=== PATIENT | male | born 1940 | race Caucasian/White ===

== ENCOUNTER 2017-06-02 18:59 | Inpatient (IN) ==
[2017-06-02] MEDS ORDERED: DEXTROSE 50% 25 GM/50 ML VIAL IV PRN (20:44)
[2017-06-02] MEDS ORDERED: ONDANSETRON 4 MG/2 ML VIAL IV PRN (20:44)
[2017-06-02] MEDS ORDERED: ACETAMINOPHEN 325 MG TABLET PO PRN (20:44)
[2017-06-02] MEDS ORDERED: GLUCAGON 1 MG VIAL IM PRN (20:44)
[2017-06-02] MEDS ORDERED: ALBUTEROL/IPRATROPIUM 3 ML NEB RESP TX PRN (20:50)
[2017-06-02] MEDS ORDERED: AMITRIPTYLINE 10 MG TABLET PO PRN (21:46)
[2017-06-02] MEDS: CILOSTAZOL 50 MG TABLET PO SCH (22:03)
[2017-06-02] MEDS: DOCUSATE/SENNA 50-8.6 MG TABLET PO SCH (22:03)
[2017-06-02] MEDS: ROSUVASTATIN 10 MG TABLET PO SCH (22:03)
[2017-06-02] MEDS: INSULIN REGULAR 100 UNIT/ML SUBCUT SCH (22:31)
[2017-06-02] MEDS: MELATONIN 3 MG TABLET PO SCH (22:33)
[2017-06-02] MEDS: AZITHROMYCIN INJ 500 MG in SODIUM CHLORIDE 0.9% 250 ML IV SCH (22:42)
[2017-06-02] MEDS: POTASSIUM CHLORIDE 20 MEQ TABLET PO PRN (22:43)
[2017-06-02] MEDS: ENOXAPARIN 40 MG/0.4 ML SYRINGE SUBCUT SCH (22:48)
[2017-06-03] MEDS: POTASSIUM CHLORIDE 20 MEQ TABLET PO PRN ×2 (02:33→05:42)
[2017-06-03 07:59] LABS: Basophils # 0.1 10*3/uL (0.0-0.2); Basophils % 0.3 % (0.0-0.8); Eosinophils # 0.4 10*3/uL (0.0-0.87); Eosinophils % 2.9 % (0.00-10.9); Hematocrit 32.7 VOL% (42.0-52.0); Hemoglobin 11.4 GM/DL (14.0-18.0); Immature Granulocytes % 0.3 %; Immature Granulocytes Absolute 0.05 #; Lymphocytes # 1.7 10*3/uL (1.4-4.0); Lymphocytes % 11.5 % (21.2-54.2); Mean Corpuscular HGB Conc 34.9 GM/DL (32-36); Mean Corpuscular Hemoglobin 29 PG (27-34); Mean Corpuscular Volume 83.2 FL (87-102); Monocytes # 1.3 10*3/uL (0.11-0.8); Monocytes % 9.2 % (1.7-12.7); Neutrophils # 10.9 10*3/uL (1.4-7.4); Neutrophils % 75.8 % (38.7-73.9); Platelet Count 206 T/CUMM (130-400); Red Blood Count 3.93 MC/CUMM (3.8-5.5); Red Cell Distribution Width 13.2 % (9.3-17.3); White Blood Count 14.4 T/CUMM (4-12)
[2017-06-03 08:39] LABS: Albumin 2.8 G/DL (3.4-5.0); Bilirubin,Total 0.7 MG/DL (0.2-1.0); Calcium 8.4 MG/DL (8.5-10.1); Osmolality,Calculated 277.7 MOS/KG (273-304); Potassium 5.4 MMOL/L (3.5-5.1)
[2017-06-03] MEDS: INSULIN REGULAR 100 UNIT/ML SUBCUT SCH ×4 (08:54→22:18)
[2017-06-03] MEDS: GLIMEPIRIDE 4 MG TABLET PO SCH (08:54)
[2017-06-03] MEDS: CILOSTAZOL 50 MG TABLET PO SCH ×2 (08:55→23:00)
[2017-06-03] MEDS: PANTOPRAZOLE 40 MG TABLET PO SCH (08:55)
[2017-06-03] MEDS: CLOPIDOGREL 75 MG TABLET PO SCH (08:55)
[2017-06-03] MEDS: cefTRIAXone 1,000 MG in SYRINGE 1 EACH IV SCH (08:56)
[2017-06-03] MEDS: DOCUSATE/SENNA 50-8.6 MG TABLET PO SCH ×2 (08:58→22:59)
[2017-06-03] MEDS: ASCORBIC ACID 500 MG TABLET PO SCH (08:58)
[2017-06-03] MEDS: ZINC GLUCONATE 50 MG TABLET PO SCH (08:58)
[2017-06-03] MEDS ORDERED: ASPIRIN EC 81 MG TABLET PO SCH (21:00)
[2017-06-03] MEDS ORDERED: ATENOLOL 50 MG TABLET PO SCH (21:00)
[2017-06-03] MEDS: MELATONIN 3 MG TABLET PO SCH (23:00)
[2017-06-03] MEDS: ROSUVASTATIN 10 MG TABLET PO SCH (23:01)
[2017-06-03] MEDS: ENOXAPARIN 40 MG/0.4 ML SYRINGE SUBCUT SCH (23:03)
[2017-06-03] MEDS: AZITHROMYCIN INJ 500 MG in SODIUM CHLORIDE 0.9% 250 ML IV SCH (23:04)
[2017-06-04] MEDS: GLIMEPIRIDE 4 MG TABLET PO SCH (08:49)
[2017-06-04] MEDS: ZINC GLUCONATE 50 MG TABLET PO SCH (08:50)
[2017-06-04] MEDS: CILOSTAZOL 50 MG TABLET PO SCH (08:50)
[2017-06-04] MEDS: ASCORBIC ACID 500 MG TABLET PO SCH (08:50)
[2017-06-04] MEDS: PANTOPRAZOLE 40 MG TABLET PO SCH (08:50)
[2017-06-04] MEDS: CLOPIDOGREL 75 MG TABLET PO SCH (08:51)
[2017-06-04] MEDS: cefTRIAXone 1,000 MG in SYRINGE 1 EACH IV SCH (08:51)
[2017-06-04] MEDS: DOCUSATE/SENNA 50-8.6 MG TABLET PO SCH (09:00)
[2017-06-04] MEDS: INSULIN REGULAR 100 UNIT/ML SUBCUT SCH ×2 (09:11→12:17)
[2017-06-04] MEDS ORDERED: LOPERAMIDE 2 MG CAPSULE PO PRN (09:54)
[2017-06-04 11:37] VITALS: BP 132/67
== END 2017-06-04 15:35 | disposition home or self-care (01) | DRG 871 ==
LOC: EDUNIT# → EDBD → N.ED 18:59 → N.EDINP 20:34 → SUATTDRO 20:34 → N.EDINP 21:33 → N.2E 21:44
PROVIDERS: ADMIT Internal Medicine; ATTEND Internal Medicine Nephrology

== ENCOUNTER 2018-08-22 08:24 | Inpatient (IN) ==
[2018-08-22 10:29] LABS: Basophils % 0.5 % (0.0-0.8); Eosinophils # 0.2 10*3/uL (0.0-0.87); Eosinophils % 2.3 % (0.00-10.9); Hemoglobin 10.9 GM/DL (14.0-18.0); Immature Granulocytes % 0.3 %; Immature Granulocytes Absolute 0.03 #; Lymphocytes # 1.8 10*3/uL (1.4-4.0); Lymphocytes % 20.8 % (21.2-54.2); Mean Corpuscular HGB Conc 32.1 GM/DL (32-36); Mean Corpuscular Hemoglobin 29 PG (27-34); Mean Platelet Volume 9.9 FL (9.6-12.0); Monocytes # 0.7 10*3/uL (0.11-0.8); Monocytes % 8.2 % (1.7-12.7); Neutrophils % 67.9 % (38.7-73.9); Platelet Count 210 T/CUMM (130-400); Red Blood Count 3.82 MC/CUMM (3.8-5.5); White Blood Count 8.8 T/CUMM (4-12)
[2018-08-22] MEDS ORDERED: DEXTROSE 50% 25 GM/50 ML SYRINGE IV PRN (10:49)
[2018-08-22] MEDS ORDERED: GLUCAGON 1 MG VIAL IM PRN (10:50)
[2018-08-22] MEDS ORDERED: AMITRIPTYLINE 10 MG TABLET PO PRN ×2 (10:50→10:52)
[2018-08-22] MEDS ORDERED: ACETAMINOPHEN 325 MG TABLET PO PRN (10:50)
[2018-08-22 11:00] LABS: Alanine Aminotransferase 14 U/L (16-61); Alkaline Phosphatase 44 U/L (45-117); Aspartate Amino Transferase 11 U/L (0-37); Bilirubin,Total < 0.39 MG/DL (0.2-1.0); Blood Urea Nitrogen 18 MG/DL (7-18); Calcium 8.5 MG/DL (8.5-10.1); Glucose 216 MG/DL (74-106); Osmolality,Calculated 289.3 MOS/KG (273-304); Potassium 5.6 MMOL/L (3.5-5.1); Sodium 141 MMOL/L (136-145); Total Protein 6.5 G/DL (6.4-8.3)
[2018-08-22] MEDS ORDERED: SODIUM CHLORIDE 0.9% 1,000 ML IV SCH (11:00)
[2018-08-22] MEDS: CHLORHEXIDINE 4% SOLN 118 ML BOTTLE TOP SCH ×2 (15:17→21:41)
[2018-08-22 16:02] LABS: ABG Base Excess 2.9 MMOL/L (-2.5-2.5); ABG Oxygen Saturation 97.2 % (95-100); ABG PCO2 42.4 MM HG (35-48); ABG PH 7.422 (7.35-7.45); ABG PO2 85.8 MM HG (80-95); ABG TCO2 24.3 MMOL/L (23-27)
[2018-08-22] MEDS ORDERED: ATENOLOL 50 MG TABLET PO SCH (21:00)
[2018-08-22] MEDS ORDERED: MELATONIN 3 MG TABLET PO SCH (21:00)
[2018-08-22] MEDS ORDERED: PANTOPRAZOLE 40 MG TABLET PO SCH (21:00)
[2018-08-22] MEDS: MORPHINE ER 30 MG TABLET PO SCH (22:06)
[2018-08-22] MEDS: CHLORHEXIDINE 0.12% ORAL RINSE 60 ML BOTTLE SWISH/SPIT SCH (22:07)
[2018-08-22] MEDS: DOCUSATE/SENNA 50-8.6 MG TABLET PO SCH (22:07)
[2018-08-23] MEDS ORDERED: CEFUROXIME INJ 1,500 MG in SYRINGE 1 EACH IV ONE (05:00)
[2018-08-23] MEDS: CHLORHEXIDINE 4% SOLN 118 ML BOTTLE TOP SCH ×2 (05:23→11:09)
[2018-08-23] MEDS ORDERED: MIDAZOLAM 10 MG/2 ML VIAL ONE ×2 (05:39→05:40)
[2018-08-23] MEDS ORDERED: SUFentanil 250 MCG/5 ML AMP ONE (05:39)
[2018-08-23] MEDS ORDERED: VECURONIUM 10 MG VIAL IV ONE (05:40)
[2018-08-23] MEDS ORDERED: MINERAL OIL/PETROLATUM OPH OINT 3.5 GM TUBE ONE (05:40)
[2018-08-23] MEDS ORDERED: AMINOCAPROIC ACID 5,000 MG/20 ML VIAL IV ONE (05:41)
[2018-08-23] MEDS ORDERED: CALCIUM CHLORIDE 1,000 MG/10 ML VIAL IV ONE (05:41)
[2018-08-23] MEDS ORDERED: VANCOMYCIN 1,000 MG VIAL ONE (05:42)
[2018-08-23] MEDS ORDERED: LORazepam 1 MG TABLET PO ONE (06:00)
[2018-08-23] MEDS ORDERED: PHENYLEPHRINE DRIP 40 MG/250 ML PREMIX IV ONE (07:08)
[2018-08-23] MEDS ORDERED: CALCIUM CHLORIDE 1,000 MG/10 ML SYRINGE IV ONE (07:08)
[2018-08-23] MEDS ORDERED: POTASSIUM CHLORIDE RIDER 100 ML IV ONE (07:08)
[2018-08-23] MEDS ORDERED: NITROPRUSSIDE 50 MG/2 ML VIAL ONE (07:08)
[2018-08-23] MEDS ORDERED: CEFUROXIME 1,500 MG VIAL ONE (07:34)
[2018-08-23 07:38] LABS: ABG Base Excess 1.5 MMOL/L (-2.5-2.5); ABG HCO3 25.8 MMOL/L (20-26); ABG PCO2 39.5 MM HG (35-48); ABG PH 7.425 (7.35-7.45); ABG TCO2 23.5 MMOL/L (23-27); Glucose Heart Surgery 113 MG/DL (74-106); Hematocrit Heart Surgery 31.3 PERCENT (42-52); Hemoglobin Heart Surgery 10.1 G/DL (14.0-18.0); Ionized Calcium Arterial 1.31 MMOL/L (1.21-1.46); PCO2 Patient Temp Arterial 39.5 MMHG; PH Patient Temp Arterial 7.425; Patient Temperature 37 CELCIUS; Potassium Heart/CVR 3.7 MMOL/L (3.5-5.1); Sodium Heart/CVR 139 MMOL/L (135-145)
[2018-08-23 08:21] LABS: Apearance,Urine Slightly Hazy (Clear); Bilirubin,Urine Negative (Negative); Blood, Urine Negative (Negative); Glucose,Urine (UA) Negative (Negative); Ketones,Urine Negative (Negative); Nitrite,Urine Positive (Negative); Protein,Urine Negative; RBC,Urine 4 /HPF (0-4); Squamous Epithelial Cell,Urine Occasional /HPF (0-10); Urine Color Yellow (Yellow); Urine Specific Gravity 1.017 (1.001-1.035); Urine Urobilinogen < 2.0 EU/DL (0.2-1.0); WBC,Urine 36 /HPF (0-6)
[2018-08-23 08:28] LABS: PH Patient Temp Venous 7.497; PO2 Patient Temp Venous 35.7 MM HG; Potassium Heart/CVR 4.5 MMOL/L (3.5-5.1); VBG Base Excess 2.5 MEQ/L (0-4); VBG HCO3 26.5 MEQ/L (24-28); VBG Oxygen Saturation 81.5 %; VBG PCO2 36.4 MMHG (41-51); VBG PH 7.467; VBG PO2 41.1 MMHG (17-40)
[2018-08-23 08:31] LABS: Hemoglobin Heart Surgery 6.4 G/DL (14.0-18.0)
[2018-08-23 08:59] LABS: Hematocrit Heart Surgery 23.3 PERCENT (42-52); Hemoglobin Heart Surgery 7.5 G/DL (14.0-18.0); PCO2 Patient Temp Venous 29.8 MM HG; PH Patient Temp Venous 7.535; PO2 Patient Temp Venous 40.3 MM HG; Potassium Heart/CVR 4.1 MMOL/L (3.5-5.1); VBG Base Excess 2.9 MEQ/L (0-4); VBG HCO3 26.9 MEQ/L (24-28); VBG Oxygen Saturation 89.7 %; VBG PCO2 34.5 MMHG (41-51); VBG PH 7.489; VBG PO2 49.5 MMHG (17-40)
[2018-08-23] MEDS ORDERED: ASCORBIC ACID 500 MG TABLET PO SCH (09:00)
[2018-08-23] MEDS ORDERED: ZINC GLUCONATE 50 MG TABLET PO SCH (09:00)
[2018-08-23] MEDS ORDERED: LEVOFLOXACIN 750 MG TABLET PO SCH (09:00)
[2018-08-23] MEDS ORDERED: GLIMEPIRIDE 4 MG TABLET PO SCH (09:00)
[2018-08-23] MEDS ORDERED: MULTIVITAMIN (CENTRUM) TABLET PO SCH (09:00)
[2018-08-23 09:42] LABS: ABG Base Excess 1.4 MMOL/L (-2.5-2.5); ABG HCO3 25.7 MMOL/L (20-26); ABG PCO2 32.1 MM HG (35-48); ABG PH 7.491 (7.35-7.45); ABG TCO2 22.9 MMOL/L (23-27); Glucose Heart Surgery 202 MG/DL (74-106); Hematocrit Heart Surgery 23.9 PERCENT (42-52); Hemoglobin Heart Surgery 7.7 G/DL (14.0-18.0); Ionized Calcium Arterial 1.27 MMOL/L (1.21-1.46); PCO2 Patient Temp Arterial 32.1 MMHG; PH Patient Temp Arterial 7.491; Patient Temperature 37 CELCIUS; Potassium Heart/CVR 4.3 MMOL/L (3.5-5.1); Sodium Heart/CVR 132 MMOL/L (135-145)
[2018-08-23] MEDS ORDERED: HEPARIN 10,000 UNIT/10 ML VIAL ONE (09:46)
[2018-08-23] MEDS ORDERED: MANNITOL 12.5 GM/50 ML VIAL IV ONE (09:46)
[2018-08-23] MEDS ORDERED: PROTAMINE SULFATE 250 MG/25 ML VIAL IV ONE (09:46)
[2018-08-23] MEDS ORDERED: ALBUMIN 25% 25 GM/100 ML VIAL IV ONE (09:46)
[2018-08-23] MEDS ORDERED: DEXTROSE 5% KCL 20 MEQ 20 MEQ/1,000 ML BAG IV ONE (09:46)
[2018-08-23] MEDS ORDERED: FUROSEMIDE 20 MG/2 ML VIAL ONE (09:46)
[2018-08-23] MEDS ORDERED: methylPREDNISolone SOD SUC 1,000 MG/8 ML VIAL ONE (09:46)
[2018-08-23] MEDS ORDERED: MAGNESIUM SULFATE 10 GM/20 ML VIAL IV ONE (09:46)
[2018-08-23] MEDS ORDERED: SODIUM BICARBONATE 50 MEQ/50 ML SYRINGE IV ONE (09:46)
[2018-08-23] MEDS ORDERED: POTASSIUM CHLORIDE 20 MEQ/10 ML VIAL ONE (09:47)
[2018-08-23] MEDS ORDERED: PROTAMINE SULFATE 50 MG/5 ML VIAL IV ONE ×3 (09:47→10:40)
[2018-08-23] MEDS: SODIUM CHLORIDE 0.45% 1,000 ML IV SCH (10:21)
[2018-08-23] MEDS ORDERED: HEPARIN/NACL 0.9% 2 UNITS/ML 500 ML IV ONE (10:27)
[2018-08-23] MEDS ORDERED: SEVOFLURANE 1 UNIT/15 MINUTE INH ONE (10:27)
[2018-08-23] MEDS ORDERED: SUFentanil 50 MCG/ML AMP ONE (10:27)
[2018-08-23] MEDS ORDERED: PHENYLEPHRINE DRIP 20 MG/250 ML PREMIX IV ONE (10:27)
[2018-08-23] MEDS ORDERED: GLYCOPYRROLATE 0.4 MG/2 ML VIAL ONE (10:28)
[2018-08-23] MEDS ORDERED: ETOMIDATE 40 MG/20 ML VIAL IV ONE (10:28)
[2018-08-23] MEDS ORDERED: NITROGLYCERIN DRIP 50 MG/250 ML BOTTLE IV ONE (10:28)
[2018-08-23] MEDS ORDERED: SODIUM CHLORIDE 0.9% 250 ML IV ONE (10:28)
[2018-08-23] MEDS ORDERED: SODIUM CHLORIDE 0.9% 2,000 ML IV ONE (10:28)
[2018-08-23] MEDS ORDERED: LACTATED RINGERS 1,000 ML IV ONE (10:28)
[2018-08-23] MEDS ORDERED: SODIUM CHLORIDE 0.9% 100 ML IV ONE (10:28)
[2018-08-23] MEDS: LACTATED RINGERS 1,000 ML IV PRN (10:33)
[2018-08-23] MEDS ORDERED: ALBUMIN 5% 12.5 GM/250 ML VIAL IV ONE (10:44)
[2018-08-23] MEDS ORDERED: SODIUM CHLORIDE 0.45% 1,000 ML IV SCH (10:44)
[2018-08-23] MEDS ORDERED: MIDAZOLAM 10 MG/2 ML VIAL IV PRN (10:44)
[2018-08-23] MEDS ORDERED: POTASSIUM CHLORIDE RIDER 10 MEQ in PREMIX 1 EACH IV PRN (10:44)
[2018-08-23] MEDS ORDERED: INSULIN REGULAR 100 UNIT/ML IV ONE (10:44)
[2018-08-23] MEDS ORDERED: INSULIN REGULAR DRIP 100 ML IV SCH (10:44)
[2018-08-23] MEDS ORDERED: ACETAMINOPHEN 650 MG SUPP RECTAL PRN (10:44)
[2018-08-23] MEDS ORDERED: VECURONIUM 10 MG VIAL IV PRN ×2 (10:44)
[2018-08-23] MEDS ORDERED: MORPHINE 10 MG/1 ML VIAL IV PRN (10:44)
[2018-08-23] MEDS ORDERED: MAGNESIUM SULF RIDER 4 GM in PREMIX 1 EACH IV PRN (10:44)
[2018-08-23] MEDS ORDERED: CALCIUM CHLORIDE 1,000 MG/10 ML SYRINGE IV PRN (10:44)
[2018-08-23] MEDS ORDERED: DEXTROSE 50% 25 GM/50 ML SYRINGE IV PRN ×2 (10:44)
[2018-08-23] MEDS ORDERED: MORPHINE 4 MG/1 ML VIAL IV PRN (10:44)
[2018-08-23] MEDS ORDERED: MAGNESIUM SULF RIDER 2 GM in PREMIX 1 EACH IV PRN (10:44)
[2018-08-23] MEDS ORDERED: ONDANSETRON 4 MG/2 ML VIAL IV PRN (10:44)
[2018-08-23] MEDS ORDERED: MIDAZOLAM 2 MG/2 ML VIAL IV PRN (10:44)
[2018-08-23] MEDS ORDERED: LACTATED RINGERS 250 ML IV PRN (10:44)
[2018-08-23] MEDS ORDERED: PHENYLEPHRINE DRIP 40 MG/250 ML PREMIX IV PRN (10:44)
[2018-08-23] MEDS ORDERED: NITROPRUSSIDE 100 MG in DEXTROSE 5% 250 ML IV PRN (10:44)
[2018-08-23 11:01] LABS: Basophils % 0.1 % (0.0-0.8); Eosinophils # 0.1 10*3/uL (0.0-0.87); Eosinophils % 0.8 % (0.00-10.9); Hematocrit 24.7 VOL% (42.0-52.0); Hemoglobin 8.4 GM/DL (14.0-18.0); Immature Granulocytes % 0.7 %; Immature Granulocytes Absolute 0.06 #; Lymphocytes # 2.1 10*3/uL (1.4-4.0); Lymphocytes % 22.8 % (21.2-54.2); Mean Corpuscular Hemoglobin 30 PG (27-34); Mean Corpuscular Volume 87.3 FL (87-102); Mean Platelet Volume 9.8 FL (9.6-12.0); Monocytes # 0.7 10*3/uL (0.11-0.8); Monocytes % 7.3 % (1.7-12.7); Neutrophils # 6.2 10*3/uL (1.4-7.4); Neutrophils % 68.3 % (38.7-73.9); Platelet Count 157 T/CUMM (130-400); Red Blood Count 2.83 MC/CUMM (3.8-5.5); Red Cell Distribution Width 12.9 % (9.3-17.3); White Blood Count 9.1 T/CUMM (4-12)
[2018-08-23 11:02] LABS: ABG Base Excess 1.3 MMOL/L (-2.5-2.5); ABG HCO3 25.6 MMOL/L (20-26); ABG Oxygen Saturation 99.9 % (95-100); ABG PCO2 30.1 MM HG (35-48); ABG PH 7.507 (7.35-7.45); ABG TCO2 21.8 MMOL/L (23-27); Glucose Heart Surgery 193 MG/DL (74-106); Hematocrit Heart Surgery 28.2 PERCENT (42-52); Hemoglobin Heart Surgery 9.1 G/DL (14.0-18.0); Potassium Heart/CVR 4.2 MMOL/L (3.5-5.1)
[2018-08-23 11:10] LABS: INR 1.4; PT Patient Result 15.4 SECS; Partial Thromboplastin Time 26.5 SECS (0-40)
[2018-08-23 11:21] LABS: Bilirubin,Total 0.8 MG/DL (0.2-1.0); Calcium 8.5 MG/DL (8.5-10.1); Osmolality,Calculated 278.8 MOS/KG (273-304); Potassium 4.3 MMOL/L (3.5-5.1); Total Protein 5.2 G/DL (6.4-8.3)
[2018-08-23] MEDS: KETOROLAC 30 MG/1 ML VIAL IV SCH ×3 (11:25→22:48)
[2018-08-23] MEDS: ALBUMIN 5% 12.5 GM in PREMIX 1 EACH IV PRN ×3 (11:30→14:30)
[2018-08-23] MEDS: POTASSIUM CHLORIDE RIDER 20 MEQ in PREMIX 1 EACH IV PRN ×2 (11:32→15:09)
[2018-08-23 11:37] LABS: Troponin I 1.58 NG/ML (0.00-0.045)
[2018-08-23] MEDS: CHLORHEXIDINE 0.12% ORAL RINSE 60 ML BOTTLE SWISH/SPIT SCH ×2 (12:20→20:41)
[2018-08-23] MEDS: DOCUSATE/SENNA 50-8.6 MG TABLET PO SCH (12:20)
[2018-08-23] MEDS: MORPHINE ER 30 MG TABLET PO SCH (12:20)
[2018-08-23 12:23] LABS: ABG Base Excess -0.6 MMOL/L (-2.5-2.5); ABG HCO3 22.2 MMOL/L (20-26); ABG Oxygen Saturation 98.6 % (95-100); ABG PH 7.488 (7.35-7.45); ABG PO2 205.3 MM HG (80-95); ABG TCO2 23.2 MMOL/L (23-27); Glucose Heart Surgery 206 MG/DL (74-106); Hemoglobin Heart Surgery 9.8 G/DL (14.0-18.0); Potassium Heart/CVR 4.4 MMOL/L (3.5-5.1)
[2018-08-23 13:41] LABS: ABG Base Excess -1.6 MMOL/L (-2.5-2.5); ABG HCO3 23.1 MMOL/L (20-26); ABG Oxygen Saturation 99.5 % (95-100); ABG PCO2 37.3 MM HG (35-48); ABG PH 7.396 (7.35-7.45); ABG TCO2 20.7 MMOL/L (23-27); Glucose Heart Surgery 240 MG/DL (74-106); Hematocrit Heart Surgery 32.5 PERCENT (42-52); Hemoglobin Heart Surgery 10.5 G/DL (14.0-18.0); Potassium Heart/CVR 4.6 MMOL/L (3.5-5.1)
[2018-08-23 14:58] LABS: ABG HCO3 22.8 MMOL/L (20-26); ABG Oxygen Saturation 99.6 % (95-100); ABG PCO2 31.1 MM HG (35-48); ABG PH 7.444 (7.35-7.45); ABG TCO2 19.2 MMOL/L (23-27); Glucose Heart Surgery 263 MG/DL (74-106); Hematocrit Heart Surgery 31.9 PERCENT (42-52); Hemoglobin Heart Surgery 10.3 G/DL (14.0-18.0); Potassium Heart/CVR 4.1 MMOL/L (3.5-5.1)
[2018-08-23 16:07] LABS: ABG Base Excess -3.1 MMOL/L (-2.5-2.5); ABG HCO3 21.8 MMOL/L (20-26); ABG Oxygen Saturation 99.3 % (95-100); ABG PCO2 41.8 MM HG (35-48); ABG PH 7.339 (7.35-7.45); ABG TCO2 20.5 MMOL/L (23-27); Glucose Heart Surgery 249 MG/DL (74-106); Hematocrit Heart Surgery 31.8 PERCENT (42-52); Hemoglobin Heart Surgery 10.3 G/DL (14.0-18.0); Potassium Heart/CVR 4.9 MMOL/L (3.5-5.1)
[2018-08-23] MEDS: INSULIN REGULAR 100 UNIT/ML IV PRN ×2 (16:21→18:47)
[2018-08-23] MEDS: CEFUROXIME INJ 1,500 MG in SYRINGE 1 EACH IV SCH (17:29)
[2018-08-23 18:40] LABS: CKMB % 6.4 %
[2018-08-23 18:44] LABS: Troponin I 2.14 NG/ML (0.00-0.045)
[2018-08-23 21:43] LABS: ABG Base Excess -1.5 MMOL/L (-2.5-2.5); ABG HCO3 23.1 MMOL/L (20-26); ABG Oxygen Saturation 99.7 % (95-100); ABG PCO2 30.4 MM HG (35-48); ABG PH 7.459 (7.35-7.45); ABG TCO2 19.6 MMOL/L (23-27); Glucose Heart Surgery 141 MG/DL (74-106); Hematocrit Heart Surgery 30.5 PERCENT (42-52); Hemoglobin Heart Surgery 9.9 G/DL (14.0-18.0); Potassium Heart/CVR 4.1 MMOL/L (3.5-5.1)
[2018-08-23 22:21] LABS: ABG Base Excess -1.9 MMOL/L (-2.5-2.5); ABG HCO3 22.9 MMOL/L (20-26); ABG Oxygen Saturation 99.8 % (95-100); ABG PCO2 37.1 MM HG (35-48); ABG PH 7.393 (7.35-7.45); ABG TCO2 20.6 MMOL/L (23-27); Glucose Heart Surgery 136 MG/DL (74-106); Hematocrit Heart Surgery 30.5 PERCENT (42-52); Hemoglobin Heart Surgery 9.8 G/DL (14.0-18.0); Potassium Heart/CVR 4.1 MMOL/L (3.5-5.1)
[2018-08-24] MEDS ORDERED: FUROSEMIDE 40 MG/4 ML VIAL IV ONE
[2018-08-24] MEDS: LACTATED RINGERS 1,000 ML IV PRN (01:42)
[2018-08-24] MEDS: ALBUMIN 5% 12.5 GM in PREMIX 1 EACH IV PRN (02:29)
[2018-08-24 04:15] LABS: ABG Base Excess -0.4 MMOL/L (-2.5-2.5); ABG HCO3 24.1 MMOL/L (20-26); ABG Oxygen Saturation 98.9 % (95-100); ABG PCO2 38.7 MM HG (35-48); ABG PH 7.403 (7.35-7.45); ABG TCO2 22.3 MMOL/L (23-27); Glucose Heart Surgery 120 MG/DL (74-106); Hematocrit Heart Surgery 27.3 PERCENT (42-52); Hemoglobin Heart Surgery 8.8 G/DL (14.0-18.0); Potassium Heart/CVR 4.1 MMOL/L (3.5-5.1)
[2018-08-24 04:17] LABS: Basophils % 0.1 % (0.0-0.8); Eosinophils % 0.1 % (0.00-10.9); Hematocrit 25.3 VOL% (42.0-52.0); Hemoglobin 8.5 GM/DL (14.0-18.0); Immature Granulocytes % 0.5 %; Immature Granulocytes Absolute 0.09 #; Lymphocytes # 1.1 10*3/uL (1.4-4.0); Lymphocytes % 6.4 % (21.2-54.2); Mean Corpuscular HGB Conc 33.6 GM/DL (32-36); Mean Corpuscular Hemoglobin 29 PG (27-34); Mean Corpuscular Volume 87.5 FL (87-102); Mean Platelet Volume 10.5 FL (9.6-12.0); Monocytes # 1.1 10*3/uL (0.11-0.8); Monocytes % 6.4 % (1.7-12.7); Neutrophils # 14.4 10*3/uL (1.4-7.4); Neutrophils % 86.5 % (38.7-73.9); Platelet Count 134 T/CUMM (130-400); Red Blood Count 2.89 MC/CUMM (3.8-5.5); Red Cell Distribution Width 13.5 % (9.3-17.3); White Blood Count 16.6 T/CUMM (4-12)
[2018-08-24 04:34] LABS: Albumin 3.4 G/DL (3.4-5.0); Bilirubin,Direct 0.16 MG/DL (0.0-0.20); Bilirubin,Total 0.7 MG/DL (0.2-1.0); Osmolality,Calculated 280.5 MOS/KG (273-304); Potassium 4.5 MMOL/L (3.5-5.1); Total Protein 5.4 G/DL (6.4-8.3)
[2018-08-24] MEDS: KETOROLAC 30 MG/1 ML VIAL IV SCH ×4 (04:35→23:21)
[2018-08-24 04:38] LABS: CKMB % 4.3 %
[2018-08-24 04:40] LABS: Troponin I 1.41 NG/ML (0.00-0.045)
[2018-08-24 05:34] LABS: ABG Base Excess -1.1 MMOL/L (-2.5-2.5); ABG HCO3 23.5 MMOL/L (20-26); ABG Oxygen Saturation 98.8 % (95-100); ABG PCO2 36.5 MM HG (35-48); ABG PH 7.411 (7.35-7.45); ABG TCO2 21.3 MMOL/L (23-27); Glucose Heart Surgery 147 MG/DL (74-106); Hematocrit Heart Surgery 28.5 PERCENT (42-52); Hemoglobin Heart Surgery 9.2 G/DL (14.0-18.0); Potassium Heart/CVR 4.4 MMOL/L (3.5-5.1)
[2018-08-24] MEDS: INSULIN REGULAR 100 UNIT/ML IV PRN (05:41)
[2018-08-24] MEDS: CEFUROXIME INJ 1,500 MG in SYRINGE 1 EACH IV SCH (05:56)
[2018-08-24] MEDS: POTASSIUM CHLORIDE RIDER 20 MEQ in PREMIX 1 EACH IV PRN (06:05)
[2018-08-24] MEDS: INSULIN LISPRO 100 UNIT/ML SUBCUT SCH ×4 (07:50→21:23)
[2018-08-24] MEDS: CHLORHEXIDINE 0.12% ORAL RINSE 60 ML BOTTLE SWISH/SPIT SCH ×2 (08:27→21:22)
[2018-08-24] MEDS ORDERED: AMITRIPTYLINE 10 MG TABLET PO PRN (09:39)
[2018-08-24] MEDS: SODIUM CHLORIDE 0.45% 1,000 ML IV SCH (10:48)
[2018-08-24 11:27] LABS: CKMB % 3.3 %
[2018-08-24 11:37] LABS: Troponin I 1.16 NG/ML (0.00-0.045)
[2018-08-24] MEDS ORDERED: MAGNESIUM HYDROXIDE SUSP 30 ML UDCUP PO PRN (13:03)
[2018-08-24] MEDS ORDERED: POTASSIUM CHLORIDE 20 MEQ TABLET PO PRN (13:03)
[2018-08-24] MEDS ORDERED: SODIUM CHLOR 0.45% KCL 20 MEQ 20 MEQ/1,000 ML BAG IV SCH (13:03)
[2018-08-24] MEDS ORDERED: ALUMINUM/MAGNES/SIMETH MAX STR 30 ML UDCUP PO PRN (13:03)
[2018-08-24] MEDS ORDERED: GLUCAGON 1 MG VIAL IM PRN ×2 (13:03)
[2018-08-24] MEDS ORDERED: ZALEPLON 5 MG CAPSULE PO PRN (13:03)
[2018-08-24] MEDS ORDERED: DEXTROSE 50% 25 GM/50 ML VIAL IV PRN (13:03)
[2018-08-24] MEDS ORDERED: DEXTROSE 50% 25 GM/50 ML SYRINGE IV PRN (13:03)
[2018-08-24] MEDS ORDERED: MAGNESIUM SULF RIDER 4 GM in PREMIX 1 EACH IV PRN (13:03)
[2018-08-24] MEDS ORDERED: MAGNESIUM SULF RIDER 2 GM in PREMIX 1 EACH IV PRN (13:03)
[2018-08-24] MEDS ORDERED: ONDANSETRON 4 MG/2 ML VIAL IV PRN (13:03)
[2018-08-24] MEDS ORDERED: ACETAMINOPHEN 325 MG TABLET PO PRN (13:03)
[2018-08-24] MEDS ORDERED: ATENOLOL 50 MG TABLET PO SCH (21:00)
[2018-08-24] MEDS: CILOSTAZOL 50 MG TABLET PO SCH (21:16)
[2018-08-24] MEDS: ROSUVASTATIN 10 MG TABLET PO SCH (21:17)
[2018-08-24] MEDS: ASPIRIN EC 81 MG TABLET PO SCH (21:17)
[2018-08-24] MEDS: MIRTAZAPINE 15 MG TABLET PO SCH (21:17)
[2018-08-24] MEDS: MELATONIN 3 MG TABLET PO SCH ×2 (21:18→21:20)
[2018-08-24] MEDS: MORPHINE ER 30 MG TABLET PO SCH (21:18)
[2018-08-24] MEDS: TAMSULOSIN 0.4 MG CAPSULE PO SCH (21:18)
[2018-08-25] MEDS: INSULIN LISPRO 100 UNIT/ML SUBCUT SCH ×6 (01:13→22:04)
[2018-08-25] MEDS: KETOROLAC 30 MG/1 ML VIAL IV SCH ×4 (04:24→23:00)
[2018-08-25 04:52] LABS: Basophils % 0.1 % (0.0-0.8); Eosinophils % 0.2 % (0.00-10.9); Hematocrit 26.2 VOL% (42.0-52.0); Hemoglobin 8.5 GM/DL (14.0-18.0); Immature Granulocytes % 0.6 %; Immature Granulocytes Absolute 0.08 #; Mean Corpuscular HGB Conc 32.4 GM/DL (32-36); Mean Corpuscular Hemoglobin 29 PG (27-34); Mean Corpuscular Volume 90.7 FL (87-102); Mean Platelet Volume 10.7 FL (9.6-12.0); Monocytes # 1.5 10*3/uL (0.11-0.8); Monocytes % 11.5 % (1.7-12.7); Neutrophils # 9.6 10*3/uL (1.4-7.4); Neutrophils % 72.6 % (38.7-73.9); Platelet Count 120 T/CUMM (130-400); Red Blood Count 2.89 MC/CUMM (3.8-5.5); Red Cell Distribution Width 13.9 % (9.3-17.3); White Blood Count 13.3 T/CUMM (4-12)
[2018-08-25 05:14] LABS: Alanine Aminotransferase 11 U/L (16-61); Albumin 3.2 G/DL (3.4-5.0); Alkaline Phosphatase 32 U/L (45-117); Aspartate Amino Transferase 13 U/L (0-37); Bilirubin,Indirect 0.8 MG/DL (0.0-1.0); Blood Urea Nitrogen 36 MG/DL (7-18); Calcium 7.8 MG/DL (8.5-10.1); Glucose 141 MG/DL (74-106); Osmolality,Calculated 288.4 MOS/KG (273-304); Potassium 4.1 MMOL/L (3.5-5.1); Sodium 140 MMOL/L (136-145); Total Protein 5.4 G/DL (6.4-8.3)
[2018-08-25 05:16] LABS: Troponin I 0.968 NG/ML (0.00-0.045)
[2018-08-25] MEDS ORDERED: FUROSEMIDE 40 MG/4 ML VIAL IV ONE (06:00)
[2018-08-25] MEDS: GLIMEPIRIDE 4 MG TABLET PO SCH (11:10)
[2018-08-25] MEDS: DUTASTERIDE 0.5 MG CAPSULE PO SCH (11:10)
[2018-08-25] MEDS: MORPHINE ER 30 MG TABLET PO SCH ×2 (11:11→22:02)
[2018-08-25] MEDS: LEVOFLOXACIN 750 MG TABLET PO SCH (11:11)
[2018-08-25] MEDS: DOCUSATE SODIUM 100 MG CAPSULE PO SCH (11:11)
[2018-08-25] MEDS: MULTIVITAMIN (CENTRUM) TABLET PO SCH (11:11)
[2018-08-25] MEDS: CHLORHEXIDINE 0.12% ORAL RINSE 60 ML BOTTLE SWISH/SPIT SCH (11:12)
[2018-08-25] MEDS: CILOSTAZOL 50 MG TABLET PO SCH ×2 (11:12→22:01)
[2018-08-25] MEDS: PANTOPRAZOLE 40 MG TABLET PO SCH (11:12)
[2018-08-25] MEDS: ZINC GLUCONATE 50 MG TABLET PO SCH (11:13)
[2018-08-25] MEDS: ASCORBIC ACID 500 MG TABLET PO SCH (11:17)
[2018-08-25] MEDS: FERROUS SULFATE 325 MG TABLET PO SCH (11:17)
[2018-08-25] MEDS: ROSUVASTATIN 10 MG TABLET PO SCH (21:59)
[2018-08-25] MEDS: MIRTAZAPINE 15 MG TABLET PO SCH (22:00)
[2018-08-25] MEDS: ASPIRIN EC 81 MG TABLET PO SCH (22:02)
[2018-08-25] MEDS: TAMSULOSIN 0.4 MG CAPSULE PO SCH (22:02)
[2018-08-25] MEDS: MELATONIN 3 MG TABLET PO SCH (22:04)
[2018-08-26] MEDS: INSULIN LISPRO 100 UNIT/ML SUBCUT SCH ×6 (04:00→22:56)
[2018-08-26] MEDS: CHLORHEXIDINE 0.12% ORAL RINSE 60 ML BOTTLE SWISH/SPIT SCH ×3 (04:03→22:57)
[2018-08-26 05:54] LABS: Alanine Aminotransferase 11 U/L (16-61); Albumin 2.7 G/DL (3.4-5.0); Alkaline Phosphatase 31 U/L (45-117); Aspartate Amino Transferase 12 U/L (0-37); Bilirubin,Indirect 0.9 MG/DL (0.0-1.0); Blood Urea Nitrogen 41 MG/DL (7-18); Calcium 7.8 MG/DL (8.5-10.1); Glucose 86 MG/DL (74-106); Osmolality,Calculated 289.3 MOS/KG (273-304); Potassium 3.9 MMOL/L (3.5-5.1); Sodium 141 MMOL/L (136-145); Total Protein 5.2 G/DL (6.4-8.3)
[2018-08-26 05:55] LABS: Troponin I 0.553 NG/ML (0.00-0.045)
[2018-08-26 06:41] LABS: Basophils % 0.3 % (0.0-0.8); Eosinophils # 0.2 10*3/uL (0.0-0.87); Eosinophils % 2.1 % (0.00-10.9); Hematocrit 26.4 VOL% (42.0-52.0); Hemoglobin 8.3 GM/DL (14.0-18.0); Immature Granulocytes % 0.5 %; Immature Granulocytes Absolute 0.05 #; Lymphocytes # 1.9 10*3/uL (1.4-4.0); Mean Corpuscular HGB Conc 31.4 GM/DL (32-36); Mean Corpuscular Hemoglobin 30 PG (27-34); Mean Corpuscular Volume 94.3 FL (87-102); Mean Platelet Volume 10.7 FL (9.6-12.0); Monocytes # 1.2 10*3/uL (0.11-0.8); Monocytes % 11.9 % (1.7-12.7); Neutrophils # 6.8 10*3/uL (1.4-7.4); Neutrophils % 66.2 % (38.7-73.9); Platelet Count 102 T/CUMM (130-400); Red Cell Distribution Width 13.8 % (9.3-17.3); White Blood Count 10.2 T/CUMM (4-12)
[2018-08-26] MEDS: KETOROLAC 30 MG/1 ML VIAL IV SCH ×4 (07:27→23:40)
[2018-08-26] MEDS: GLIMEPIRIDE 4 MG TABLET PO SCH (10:23)
[2018-08-26] MEDS: DUTASTERIDE 0.5 MG CAPSULE PO SCH (10:23)
[2018-08-26] MEDS: MULTIVITAMIN (CENTRUM) TABLET PO SCH (10:23)
[2018-08-26] MEDS: DOCUSATE SODIUM 100 MG CAPSULE PO SCH (10:23)
[2018-08-26] MEDS: MORPHINE ER 30 MG TABLET PO SCH ×2 (10:24→22:47)
[2018-08-26] MEDS: FERROUS SULFATE 325 MG TABLET PO SCH (10:24)
[2018-08-26] MEDS: LEVOFLOXACIN 750 MG TABLET PO SCH (10:24)
[2018-08-26] MEDS: PANTOPRAZOLE 40 MG TABLET PO SCH (10:25)
[2018-08-26] MEDS: CILOSTAZOL 50 MG TABLET PO SCH (10:25)
[2018-08-26] MEDS: ASCORBIC ACID 500 MG TABLET PO SCH (10:25)
[2018-08-26] MEDS: ZINC GLUCONATE 50 MG TABLET PO SCH (10:25)
[2018-08-26] MEDS: PIPERACILLIN/TAZOBACTAM 3,375 MG in SODIUM CHLORIDE 0.9% 100 ML IV SCH ×2 (14:51→22:48)
[2018-08-26] MEDS ORDERED: FUROSEMIDE 40 MG/4 ML VIAL IM ONE (15:00)
[2018-08-26] MEDS ORDERED: FUROSEMIDE 40 MG/4 ML VIAL IV ONE (17:02)
[2018-08-26] MEDS: ROSUVASTATIN 10 MG TABLET PO SCH (22:46)
[2018-08-26] MEDS: MIRTAZAPINE 15 MG TABLET PO SCH (22:48)
[2018-08-26] MEDS: TAMSULOSIN 0.4 MG CAPSULE PO SCH (22:48)
[2018-08-26] MEDS: ASPIRIN EC 81 MG TABLET PO SCH (22:48)
[2018-08-26] MEDS: MELATONIN 3 MG TABLET PO SCH (22:57)
[2018-08-27] MEDS: INSULIN LISPRO 100 UNIT/ML SUBCUT SCH ×5 (02:23→17:25)
[2018-08-27] MEDS: PIPERACILLIN/TAZOBACTAM 3,375 MG in SODIUM CHLORIDE 0.9% 100 ML IV SCH ×3 (05:40→21:40)
[2018-08-27] MEDS: KETOROLAC 30 MG/1 ML VIAL IV SCH ×2 (07:06→11:14)
[2018-08-27] MEDS ORDERED: AMIODARONE INJ 150 MG in DEXTROSE 5% 100 ML IV ONE (09:31)
[2018-08-27] MEDS ORDERED: AMIODARONE INJ 450 MG in DEXTROSE 5% 241 ML IV SCH (10:00)
[2018-08-27] MEDS: ZINC GLUCONATE 50 MG TABLET PO SCH (10:57)
[2018-08-27] MEDS: GLIMEPIRIDE 4 MG TABLET PO SCH (10:58)
[2018-08-27] MEDS: DOCUSATE SODIUM 100 MG CAPSULE PO SCH (10:58)
[2018-08-27] MEDS: MORPHINE ER 30 MG TABLET PO SCH ×2 (10:58→21:23)
[2018-08-27] MEDS: MULTIVITAMIN (CENTRUM) TABLET PO SCH (10:58)
[2018-08-27] MEDS: DUTASTERIDE 0.5 MG CAPSULE PO SCH (10:58)
[2018-08-27] MEDS: ASCORBIC ACID 500 MG TABLET PO SCH (10:58)
[2018-08-27] MEDS: CHLORHEXIDINE 0.12% ORAL RINSE 60 ML BOTTLE SWISH/SPIT SCH ×2 (10:59→21:25)
[2018-08-27] MEDS: PANTOPRAZOLE 40 MG TABLET PO SCH (10:59)
[2018-08-27] MEDS: FERROUS SULFATE 325 MG TABLET PO SCH (10:59)
[2018-08-27] MEDS: TAMSULOSIN 0.4 MG CAPSULE PO SCH (21:23)
[2018-08-27] MEDS: MELATONIN 3 MG TABLET PO SCH (21:23)
[2018-08-27] MEDS: MIRTAZAPINE 15 MG TABLET PO SCH (21:23)
[2018-08-27] MEDS: ROSUVASTATIN 10 MG TABLET PO SCH (21:24)
[2018-08-27] MEDS: ASPIRIN EC 81 MG TABLET PO SCH (21:25)
[2018-08-27] MEDS: AMIODARONE INJ 450 MG in DEXTROSE 5% 241 ML IV SCH (21:38)
[2018-08-28] MEDS: INSULIN LISPRO 100 UNIT/ML SUBCUT SCH ×6 (02:12→21:30)
[2018-08-28 05:36] LABS: Basophils % 0.3 % (0.0-0.8); Eosinophils # 0.5 10*3/uL (0.0-0.87); Eosinophils % 5.6 % (0.00-10.9); Hematocrit 28.4 VOL% (42.0-52.0); Hemoglobin 9.1 GM/DL (14.0-18.0); Immature Granulocytes % 0.5 %; Immature Granulocytes Absolute 0.04 #; Lymphocytes # 1.8 10*3/uL (1.4-4.0); Lymphocytes % 21.3 % (21.2-54.2); Mean Corpuscular Hemoglobin 30 PG (27-34); Mean Corpuscular Volume 93.1 FL (87-102); Mean Platelet Volume 10.8 FL (9.6-12.0); Monocytes # 1.1 10*3/uL (0.11-0.8); Monocytes % 12.3 % (1.7-12.7); Neutrophils # 5.2 10*3/uL (1.4-7.4); Platelet Count 127 T/CUMM (130-400); Red Blood Count 3.05 MC/CUMM (3.8-5.5); Red Cell Distribution Width 13.5 % (9.3-17.3); White Blood Count 8.6 T/CUMM (4-12)
[2018-08-28 06:06] LABS: Alanine Aminotransferase 11 U/L (16-61); Albumin 2.6 G/DL (3.4-5.0); Alkaline Phosphatase 34 U/L (45-117); Aspartate Amino Transferase 10 U/L (0-37); Bilirubin,Indirect 1.3 MG/DL (0.0-1.0); Blood Urea Nitrogen 34 MG/DL (7-18); Calcium 8.1 MG/DL (8.5-10.1); Glucose 109 MG/DL (74-106); Osmolality,Calculated 289.3 MOS/KG (273-304); Potassium 4.4 MMOL/L (3.5-5.1); Sodium 141 MMOL/L (136-145); Total Protein 5.6 G/DL (6.4-8.3)
[2018-08-28 06:07] LABS: Troponin I 0.231 NG/ML (0.00-0.045)
[2018-08-28] MEDS: PIPERACILLIN/TAZOBACTAM 3,375 MG in SODIUM CHLORIDE 0.9% 100 ML IV SCH ×4 (07:34→21:30)
[2018-08-28] MEDS: ASCORBIC ACID 500 MG TABLET PO SCH (09:59)
[2018-08-28] MEDS: FERROUS SULFATE 325 MG TABLET PO SCH (09:59)
[2018-08-28] MEDS: GLIMEPIRIDE 4 MG TABLET PO SCH (09:59)
[2018-08-28] MEDS: DUTASTERIDE 0.5 MG CAPSULE PO SCH (09:59)
[2018-08-28] MEDS: MULTIVITAMIN (CENTRUM) TABLET PO SCH (09:59)
[2018-08-28] MEDS: MORPHINE ER 30 MG TABLET PO SCH ×2 (10:00→23:07)
[2018-08-28] MEDS: ZINC GLUCONATE 50 MG TABLET PO SCH (10:00)
[2018-08-28] MEDS: PANTOPRAZOLE 40 MG TABLET PO SCH (10:00)
[2018-08-28] MEDS: CHLORHEXIDINE 0.12% ORAL RINSE 60 ML BOTTLE SWISH/SPIT SCH ×2 (10:01→21:33)
[2018-08-28] MEDS: DOCUSATE SODIUM 100 MG CAPSULE PO SCH (10:01)
[2018-08-28] MEDS: AMIODARONE 200 MG TABLET PO SCH ×2 (10:05→21:30)
[2018-08-28] MEDS: AMIODARONE INJ 450 MG in DEXTROSE 5% 241 ML IV SCH (10:07)
[2018-08-28] MEDS: ASPIRIN EC 81 MG TABLET PO SCH (21:28)
[2018-08-28] MEDS: ROSUVASTATIN 10 MG TABLET PO SCH (21:29)
[2018-08-28] MEDS: TAMSULOSIN 0.4 MG CAPSULE PO SCH (21:30)
[2018-08-28] MEDS: MIRTAZAPINE 15 MG TABLET PO SCH (21:30)
[2018-08-28] MEDS: MELATONIN 3 MG TABLET PO SCH (21:35)
[2018-08-29] MEDS: INSULIN LISPRO 100 UNIT/ML SUBCUT SCH ×6 (02:05→22:28)
[2018-08-29 05:14] LABS: Basophils % 0.2 % (0.0-0.8); Eosinophils # 0.6 10*3/uL (0.0-0.87); Eosinophils % 6.3 % (0.00-10.9); Hematocrit 26.7 VOL% (42.0-52.0); Hemoglobin 8.4 GM/DL (14.0-18.0); Immature Granulocytes % 0.6 %; Immature Granulocytes Absolute 0.05 #; Lymphocytes % 22.9 % (21.2-54.2); Mean Corpuscular HGB Conc 31.5 GM/DL (32-36); Mean Corpuscular Hemoglobin 30 PG (27-34); Mean Corpuscular Volume 93.7 FL (87-102); Mean Platelet Volume 10.7 FL (9.6-12.0); Monocytes # 0.9 10*3/uL (0.11-0.8); Monocytes % 10.8 % (1.7-12.7); Neutrophils # 5.2 10*3/uL (1.4-7.4); Neutrophils % 59.2 % (38.7-73.9); Platelet Count 136 T/CUMM (130-400); Red Blood Count 2.85 MC/CUMM (3.8-5.5); Red Cell Distribution Width 13.3 % (9.3-17.3); White Blood Count 8.7 T/CUMM (4-12)
[2018-08-29] MEDS: PIPERACILLIN/TAZOBACTAM 3,375 MG in SODIUM CHLORIDE 0.9% 100 ML IV SCH (05:27)
[2018-08-29 05:43] LABS: Alanine Aminotransferase 12 U/L (16-61); Albumin 2.6 G/DL (3.4-5.0); Alkaline Phosphatase 32 U/L (45-117); Aspartate Amino Transferase 9 U/L (0-37); Bilirubin,Indirect 0.3 MG/DL (0.0-1.0); Blood Urea Nitrogen 29 MG/DL (7-18); Calcium 7.9 MG/DL (8.5-10.1); Glucose 60 MG/DL (74-106); Osmolality,Calculated 282.4 MOS/KG (273-304); Potassium 4.1 MMOL/L (3.5-5.1); Sodium 140 MMOL/L (136-145); Total Protein 5.5 G/DL (6.4-8.3)
[2018-08-29] MEDS: AMOXICILLIN/CLAV 500 MG TABLET PO SCH ×2 (09:46→21:49)
[2018-08-29] MEDS: ZINC GLUCONATE 50 MG TABLET PO SCH (09:47)
[2018-08-29] MEDS: ASCORBIC ACID 500 MG TABLET PO SCH (09:47)
[2018-08-29] MEDS: DUTASTERIDE 0.5 MG CAPSULE PO SCH (09:47)
[2018-08-29] MEDS: MULTIVITAMIN (CENTRUM) TABLET PO SCH (09:47)
[2018-08-29] MEDS: DOCUSATE SODIUM 100 MG CAPSULE PO SCH (09:47)
[2018-08-29] MEDS: FERROUS SULFATE 325 MG TABLET PO SCH (09:47)
[2018-08-29] MEDS: GLIMEPIRIDE 4 MG TABLET PO SCH (09:47)
[2018-08-29] MEDS: PANTOPRAZOLE 40 MG TABLET PO SCH (09:48)
[2018-08-29] MEDS: AMIODARONE 200 MG TABLET PO SCH ×2 (09:49→21:52)
[2018-08-29] MEDS: MORPHINE ER 30 MG TABLET PO SCH ×2 (09:49→21:49)
[2018-08-29] MEDS: CHLORHEXIDINE 0.12% ORAL RINSE 60 ML BOTTLE SWISH/SPIT SCH ×2 (09:53→22:28)
[2018-08-29] MEDS ORDERED: LACTULOSE 20 GM/30 ML UDCUP PO PRN (10:24)
[2018-08-29] MEDS: MIRTAZAPINE 15 MG TABLET PO SCH (21:49)
[2018-08-29] MEDS: ROSUVASTATIN 10 MG TABLET PO SCH (21:50)
[2018-08-29] MEDS: MELATONIN 3 MG TABLET PO SCH (21:51)
[2018-08-29] MEDS: ASPIRIN EC 81 MG TABLET PO SCH (21:52)
[2018-08-29] MEDS: TAMSULOSIN 0.4 MG CAPSULE PO SCH (21:52)
[2018-08-30] MEDS: INSULIN LISPRO 100 UNIT/ML SUBCUT SCH ×3 (02:32→11:24)
[2018-08-30 08:26] VITALS: BP 137/60
[2018-08-30] MEDS: MULTIVITAMIN (CENTRUM) TABLET PO SCH (08:26)
[2018-08-30] MEDS: AMOXICILLIN/CLAV 500 MG TABLET PO SCH (08:26)
[2018-08-30] MEDS: DUTASTERIDE 0.5 MG CAPSULE PO SCH (08:27)
[2018-08-30] MEDS: GLIMEPIRIDE 4 MG TABLET PO SCH (08:27)
[2018-08-30] MEDS: AMIODARONE 200 MG TABLET PO SCH (08:28)
[2018-08-30] MEDS: DOCUSATE SODIUM 100 MG CAPSULE PO SCH (08:28)
[2018-08-30] MEDS: FERROUS SULFATE 325 MG TABLET PO SCH (08:28)
[2018-08-30] MEDS: CHLORHEXIDINE 0.12% ORAL RINSE 60 ML BOTTLE SWISH/SPIT SCH (08:29)
[2018-08-30] MEDS: ASCORBIC ACID 500 MG TABLET PO SCH (08:30)
[2018-08-30] MEDS: ZINC GLUCONATE 50 MG TABLET PO SCH (08:30)
[2018-08-30] MEDS: PANTOPRAZOLE 40 MG TABLET PO SCH (08:30)
[2018-08-30] MEDS: MORPHINE ER 30 MG TABLET PO SCH (08:36)
== END 2018-08-30 12:03 | disposition home or self-care (01) | DRG 220 ==
LOC: N.TELES 08:24 → N.CVR 08-23 07:15 → N.ICU 08-24 09:25 → N.TELES 08-24 17:21